=== PATIENT | female | born 1980 ===

== ENCOUNTER 2016-09-13 13:57 | Emergency (ER) | payer SELFPAY | END 2016-09-13 14:45 | disposition left against medical advice (07) | LOC: ED 13:57 | DX: S09.90XA Unspecified injury of head, initial encounter (principal); X58.XXXA Exposure to other specified factors, initial encounter; Y93.89 Activity, other specified; Y99.9 Unspecified external cause status; Y92.89 Other specified places as the place of occurrence of the external cause; Z53.21 Procedure and treatment not carried out due to patient leaving prior to being seen by health care provider ==